=== PATIENT | male | born 1950 | race Caucasian/White ===

== ENCOUNTER 2021-07-12 22:07 | Observation (INO) ==
[2021-07-13 01:47] LABS: Influenza A PCR Negative (Negative); Influenza B PCR Negative (Negative); Resp. Syncytial Virus PCR Negative (Negative)
[2021-07-13 01:58] LABS: SARS-CoV-2 by PCR (In House) Negative (Negative)
[2021-07-13] MEDS ORDERED: Acetaminophen 325 MG TABLET PO PRN (02:11)
[2021-07-13] MEDS ORDERED: *HR* LORazepam 2 MG/ML VIAL IM PRN ×2 (02:11→03:53)
[2021-07-13] MEDS ORDERED: hydrOXYzine pamoate 25 MG CAPSULE PO PRN (02:11)
[2021-07-13] MEDS ORDERED: *HR* LORazepam 1 MG TABLET PO PRN ×2 (02:11→03:53)
[2021-07-13] MEDS ORDERED: traZODone 50 MG TABLET PO PRN (02:11)
[2021-07-13] MEDS ORDERED: haloperidoL 5 MG TABLET PO PRN ×2 (02:11→03:54)
[2021-07-13] MEDS ORDERED: Haloperidol Lactate 5 MG/ML VIAL IM PRN ×2 (02:11→03:56)
[2021-07-13] MEDS ORDERED: *HR* OxyCODONE/APAP 10/325 TABLET PO STA (03:42)
[2021-07-13 04:39] VITALS: BP 180/80; PULSE 84; TEMP 97.1; O2SAT 91
[2021-07-13] MEDS ORDERED: Tiotropium 10 INH DOSE IH SCH (10:00)
[2021-07-13] MEDS ORDERED: *HR* OxyCODONE/APAP 10/325 TABLET PO PRN (10:25)
[2021-07-13] MEDS ORDERED: DESVENLAFAXINE 50 MG PO SCH (10:30)
[2021-07-13] MEDS ORDERED: Venlafaxine XR (24 HR) 37.5 MG CAP.ER.24H PO SCH (11:45)
[2021-07-13] MEDS ORDERED: Methylphenidate HCl 10 MG TABLET PO SCH (12:00)
[2021-07-13] MEDS: *HR* Methadone 10 MG TABLET PO SCH ×2 (15:54→18:14)
[2021-07-13] MEDS ORDERED: *HR* Methadone 10 MG TABLET PO SCH (18:00)
== END 2021-07-13 20:00 | disposition home or self-care (01) ==
LOC: EMEROOARM 22:07 → INTOOBSV 07-13 02:05 → 1ANU 07-13 02:05
PROVIDERS: ADMIT Psychiatry & Neurology Psychiatry; ATTEND Psychiatry & Neurology Psychiatry